=== PATIENT | female | born 1960 | race Caucasian/White ===

== ENCOUNTER → 2017-08-14 | Outpatient (CLI) | payer BC | END | disposition home or self-care (01) | LOC: GMAJ 10:25 | PROVIDERS: ATTEND Family Medicine | DX: Z00.00 Encounter for general adult medical examination without abnormal findings (principal) ==

== ENCOUNTER → 2018-03-07 | Outpatient (CLI) | payer OTHER ==
--- NOTE | 2018-03-08 06:38 | US ---
EXAM DESCRIPTION: Soft Tissue,Abdomen: ULTRASOUND. CLINICAL HISTORY: lump. Mid anterior abdomen wall to the left of midline. COMPARISON: None. TECHNIQUE: Transabdominal scannin-dimensional and Doppler modes. FINDINGS: Heterogeneous isoechoic mass measuring 8.2 x 6.5 x 2.3 cm in the subcutaneous adipose tissue. Smooth margins. Not vascular. No distinct cyst. No large calcifications or parenchymal edema. Overlying skin changes. IMPRESSION: 8.2 cm lipoma in the subcutaneous adipose tissue to the left of midline corresponds to palpable abnormality. No fluid collection or abnormal vascularity. Electronically signed by: Dane Luis MD 03/08/2018 6:37 AM CDT
== END ==
LOC: US 13:16
PROVIDERS: ATTEND Physician Assistant
DX: R10.84 Generalized abdominal pain (principal)

== ENCOUNTER → 2018-07-17 | Outpatient (CLI) | payer BC ==
--- NOTE | 2018-07-17 21:44 | CT ---
EXAM DESCRIPTION: Chest w/Contrast : Computed Tomography. CLINICAL HISTORY: PLEURISY COMPARISON: CT abdomen and pelvis with contrast 04/24/2018. TECHNIQUE: Spiral-axial scans at 5 x 5 mm intervals through the lungs and thorax with IV contrast. 2.5 x 5 mm lung algorithm axial reconstructions. Coronal and sagittal 2.0 Mm reconstructions. No adverse reactions. Total Exam DLP: 803.26 mGy-cm. This exam was performed according to our departmental dose-optimization program which includes automated exposure control, adjustment of the mA and/or kV according to patient size and/or use of iterative reconstruction technique; to reduce radiation dose to as low as reasonably achievable (ALARA). Nodule measurements under 10 mm are given as mean value of 3 axes diameters. FINDINGS: Lungs and airways: Minimal atelectasis in the lateral posterior recess of the right lower lobe. Pleural and parenchymal scarring in the lateral aspect of the posterior recess of the left lower lobe. Atelectasis in the inferior lingula. Overall volume loss in the left lower lobe. Minimal thickening of the bilateral major fissures more on the right than the left. No abnormal nodules masses or infiltrates. Pleural spaces: Thickening of the major fissures as previously noted. No bilateral effusion or pneumothorax. Mediastinum and Soraya: No adenopathy or soft tissue mass. Great vessels and Heart: No significant abnormality of patency with no calcifications. Soft tissues of neck base, axillae, and chest wall: 1.7 x 1.2 cm calcified nodule or mass in the left thyroid lobe. No adjacent soft tissue masses or enlarged lymph nodes. Normal size nodes in the bilateral axilla. Left retromuscular saline implant shows minimal lobulation abutting the pectoral muscle anteriorly. The right saline implant has migrated laterally and rotated 180 degrees and is also inferior to the inferior glandular portion of the breast. No large soft tissue masses. Upper abdomen: Included spleen and adrenal glands unremarkable. Surgical clips in the gallbladder fossa. Fatty pancreas. The upper aspect of the anterior midline ventral hernia sac is seen at the lower margin of the images but the actual hernial neck is not seen, presumed to be inferior to the lower margin of the scan. Suture material is noted along the posterior margin of the upper stomach, which is partially herniated into the posterior mediastinum, And the anterior margin within the abdominal cavity. Osseous structures: Spondylosis and abnormal curvature at several levels of the thoracic spine. Lateral venous flow of contrast around the left shoulder. IMPRESSION: 1. Volume loss and atelectasis in the left lower lobe. No abnormal nodules masses or infiltrates in the lungs bilaterally. No pleural effusion or pneumothorax. With no abnormal nodules visualized, no chest CT follow-up is recommended according to [employer] Best Practice guidelines and Fleischner Society 2017 recommendations for imaging pulmonary nodules. Please see below* 2. Right breast saline implant has migrated inferiorly and laterally along the anterolateral muscular orientation. The left retromuscular saline implant is in customary position with some lobulation of the anterior capsule. 3. Rim calcified mass measuring 1.7 x 1.2 cm in the right lobe of the thyroid gland. Correlate with clinical history. Consider follow-up thyroid ultrasound. This is according to [employer] Best Practice guidelines for imaging follow-up of incidental thyroid nodules (ITN's). Please see below. 4. Upper stomach with partial herniation into the posterior mediastinum and suture material along the margin of the stomach. Stable since the prior abdominal CT scan. Partial visualization of anterior midline herniation sac. Please refer to prior abdominal CT scan. *2017 Fleischner Society Recommendations for Multiple Solid Lung Nodules Follow-Up base on size (average of long- and short-axis diameters). Use most suspicious nodule for followup. Nodule Size <6 mm Low-Risk Patient: No routine follow-up 2017 Fleischner Society Recommendations for Single Solid Lung Nodule Follow-Up based on size (average of long- and short-axis diameters) <6 mm Low-Risk Patient: No routine follow-up . 1.Further evaluation by thyroid US recommended for: -Solitary ITN with high risk imaging features (locally invasive nodule or suspicious lymph nodes) -Solitary ITN of any size in pediatric pts. <= 18 years of age -Solitary ITN >= 1 cm in axial plane in pts. between 18 and 35 years of age -Solitary ITN >= 1.5 cm in axial plane in pts >= 35 years of age Recommendations for f/u of Incidental Thyroid Nodules (ITN) found on CT, MR, NM and Extrathyroidal US are based upon the ACR white paper and Velez 3-tiered system for managing ITNs: J Am Yue Radiol. 2015 Oct;12(2): 143-50 Electronically signed by: Dane Luis MD 07/17/2018 9:43 PM CDT
== END ==
LOC: LAB.O 15:03
PROVIDERS: ATTEND Family Medicine
DX: R09.1 Pleurisy (principal); I10 Essential (primary) hypertension; J98.11 Atelectasis; E04.1 Nontoxic single thyroid nodule; Z98.82 Breast implant status

== ENCOUNTER → 2018-08-25 | Outpatient (CLI) | payer BC ==
--- NOTE | 2018-08-25 10:54 | US ---
US THYROID CLINICAL STATEMENT: E04.1. No palpable mass. No thyroid surgery or therapy. COMPARISON: None FINDINGS: Size right thyroid lobe: 3.5 x 1.5 x 1.3 cm Size left thyroid lobe: 3.0 x 1.2 x 1.1 cm Size isthmus: 0.3 cm Estimated total number of nodules greater than or equal to 1 cm: 1 Nodule 1: Size: 1.6 x 1.3 x 1.2 cm Location: Right Lower Composition: solid or almost completely solid: 2 points Echogenicity: hypoechoic: 2 points Shape: wider than tall: 0 points Margins: ill-defined: 0 points Echogenic foci: peripheral calcifications: 2 points ACR Total Points: 6; ACR TI-RADS risk category: TR4 - moderately suspicious nodule. No distinct solid mass or cyst in the surrounding soft tissues. No large calcifications or abnormal vascularity. No overlying skin changes. No parenchymal edema. IMPRESSION: 1. Nodule 1: ACR TI-RADS 2017 Category TR4. Recommend: Ultrasound-guided fine needle aspiration. Based upon [employer] Best Practice recommendations in ACR TI-RADS 2017 protocol. Please see below.* 2. Soft tissue around the thyroid gland is unremarkable. *ACR TI-RADS 2017 Recommendations: TR1: No FNA or follow up TR2: No FNA or follow up TR3: FNA if >/= 2.5 cm, follow up if 1.5 - 2.4 cm in 1, 3, and 5 years TR4: FNA if >/= 1.5 cm, follow up if 1.0 - 1.4 cm in 1, 2, 3, and 5 years TR5: FNA if >/= 1.0 cm, follow up if 0.5 - 0.9 cm every year for 5 years ACR TI-RADS recommends that no more than two nodules with the highest ACR TI-RADS total point should be biopsied and no more than four nodules should be followed. Electronically signed by: Dane Luis MD 08/25/2018 10:53 AM [facility]
== END ==
LOC: US 08:25
PROVIDERS: ATTEND Family Medicine
DX: E04.1 Nontoxic single thyroid nodule (principal)

== ENCOUNTER → 2018-09-11 | Outpatient (CLI) | payer BC ==
--- NOTE | 2018-09-11 14:56 | US ---
Thyroid Ultrasound Biopsy CLINICAL INFORMATION: Partially calcified solid nodule in the lower pole of the right lobe seen on prior thyroid ultrasound 2017. TECHNIQUE: Procedure was explained to the patient with risks and benefits. The patient gave verbal and written consent. Sterile preparation draping. 1% xylocaine dermal anesthetic 9-1 mixture with sodium bicarbonate. Sterile ultrasound guidance. A total of 6 passes right thyroid nodule; 3 needle samplings with a separate 1.5 inch, 25-gauge needle per sample, and 3 aspiration, with a separate 1.5 inch, 25-gauge needle/10-cc syringe set, per aspiration. Technically difficult study due to patient swallowing and rapid breathing, and calcified wall of the nodule. Each sample was placed on a separate slide and fixed in 95% alcohol container. Saccomanno fluid drawn into aspirate needle and rinse injected into Saccomanno container. Specimens to be sent for pathologic examination at remote facility. . Patient tolerated procedure well. Biopsy #: 1 Nodule reference number based on prior diagnostic ultrasound:1 Maximum size: 1.6 cm Location: right; lower ACR TI-RADS risk category: TR4 (4-6 points) Reason for biopsy: meets ACR TI-RADS criteria Complications: None. IMPRESSION: Successful ultrasound guided fine needle aspiration of right lobe thyroid nodule in the lower pole, with multiple peripheral calcifications. Electronically signed by: Dane Luis MD 09/11/2018 2:54 PM [facility]
== END ==
LOC: US 10:47
PROVIDERS: ATTEND Family Medicine
DX: E04.1 Nontoxic single thyroid nodule (principal)

== ENCOUNTER → 2018-10-08 | Outpatient (CLI) | payer BC | LOC: LAB.O 07:52 | PROVIDERS: ATTEND Internal Medicine Endocrinology, Diabetes & Metabolism | DX: M81.0 Age-related osteoporosis without current pathological fracture (principal); R94.7 Abnormal results of other endocrine function studies; R53.83 Other fatigue; C73 Malignant neoplasm of thyroid gland ==

== ENCOUNTER → 2018-11-12 | Outpatient (CLI) | payer BC | LOC: LAB.O 08:42 | PROVIDERS: ATTEND Internal Medicine Endocrinology, Diabetes & Metabolism | DX: C73 Malignant neoplasm of thyroid gland (principal); N20.0 Calculus of kidney; I10 Essential (primary) hypertension; D75.9 Disease of blood and blood-forming organs, unspecified ==

== ENCOUNTER → 2019-07-17 | Outpatient (CLI) | payer BC ==
--- NOTE | 2019-07-17 10:38 | MAM ---
EXAM DESCRIPTION: 3D Screening BILATERAL : Digital Mammography. CLINICAL HISTORY: 58 years Female ANNUAL SCREENING . No complaints or personal history of breast cancer. Mother with breast cancer at age 80 remote family history of breast cancer. Menarche age 16. Early childbirth. Postmenopausal 25+ years. HRT less than 5 years ago. Bilateral breast augmentation. Lifetime risk of developing breast cancer (Tyrer-Cuzick model)(%): 13%. COMPARISON: None available.. No prior reports available. TECHNIQUE: Bilateral CC and MLO projection full-field images, with Delia Implant Displacement digital tomosynthesis mammographic technique. Bilateral 2-D digital full-field images, MLO and CC projections, non-displaced. Bilateral digital 2-D full-field MLO images. With implant displacement. CAD not available for tomosynthesis or 2-D images. FINDINGS: The breast parenchymal density pattern is: Scattered areas of fibroglandular density. Bilateral nipple retraction more left than right.. Microcalcifications bilaterally. Bilateral saline implants in a submuscular position. Capsules appear intact where seen. Bilateral axillary lymph nodes. No focal, stellate mass or density, focal asymmetry , and no suspicious microcalcifications bilaterally. IMPRESSION: Benign exam. BIRAD CATEGORY: 2 BENIGN FINDINGS. RECOMMENDATIONS: FOLLOW UP: Routine digital bilateral mammographic screening, one year interval from June 2019. Written communication explaining the IMPRESSION and follow-up, will be mailed to the patient and referring health care provider. According to the [employer], yearly mammograms are recommended starting at age 40 and continuing as long as a woman is in good health. Any breast change noted on a breast self-exam should be reported promptly to the patient's healthcare provider. Breast MRI is recommended for women with an approximately 20-25% or greater lifetime risk of breast cancer, including women with a strong family history of breast or ovarian cancer and women who have been treated for Hodgkin's disease. A negative mammographic report should not delay tissue diagnosis in patients with significant clinical history or physical findings. Extremely dense breast tissue limits the sensitivity of digital mammography. Electronically signed by: Dane Luis MD 07/17/2019 10:36 AM CDT
== END ==
LOC: MAMMO 09:30
PROVIDERS: ATTEND Family Medicine
DX: Z12.31 Encounter for screening mammogram for malignant neoplasm of breast (principal)

== ENCOUNTER → 2020-07-29 | Outpatient (CLI) | payer BC ==
--- NOTE | 2020-07-30 12:00 | CT ---
EXAM DESCRIPTION: Chest w/Contrast CLINICAL HISTORY: 59 years, Female, ABNL FINDING OF LUNG FIELD COMPARISON: Previous CT chest July 17, 2018, report from x-ray chest July 18, 2018 TECHNIQUE: Thin-section noncontrast axial CT images are obtained according to our protocol. Reconstructed MPR images are created and reviewed as well. FINDINGS: Lungs: Discoid atelectasis is seen in the right middle lobe, in the lingula and in the left lower lobe. No focal consolidation or groundglass infiltrate to suggest acute pneumonia. Changes in the lingula and left lower lobe were present previously. Discoid atelectasis in the right upper lobe appears to be a new development.. Enlarged tortuous right pulmonary veins were present on the previous study. 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 Clinical correlation recommended. This same configuration as seen on the previous chest CT. No worrisome pulmonary mass or nodule. Mediastinum: Single enlarged precarinal lymph node measures 1.2 cm short axis dimension. Mildly prominent nodes in the retroesophageal region appears similar to previous study. Small hiatal hernia is present. Surgical staple line in the region of the stomach with evidence of partial gastric resection/gastric bypass. Large pulmonary arteries consistent with pulmonary hypertension. Heart size is large with no pericardial effusion. Mild coronary arterial calcification. Chest wall/axilla: No mass or adenopathy. Subpectoral implants are present bilaterally, deformed and displaced on the right as on previous study. Lower neck/supraclavicular: No mass or adenopathy. Thyroid is surgically absent. Upper abdomen: Large ventral hernia is seen in the midline between diastatic rectus abdominis muscles. This contains omental fat, small amount of fluid and a Bowser's type hernia of the mid transverse colon. This appears larger than on previous study. Clips are seen in the gallbladder fossa. Coronal and sagittal reformatted images confirm the findings. 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 Benign Schmorl's nodes in the T-spine with intact sternum on sagittal and coronal images. 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 Mildly enlarged lymph node in the precarinal region likely reactive. Enlarged pulmonary arteries consistent with pulmonary hypertension. Bilateral breast implants with displacement and deformity on the right. Postoperative changes of partial gastrectomy. Large ventral hernia containing omental fat and a portion of the transverse colon. This exam was performed according to our departmental dose-optimization program, which includes automated exposure control, adjustment of the mA and/or kV according to patient size and/or use of iterative reconstruction technique. Total DLP equals 935.23 mGycm. Electronically signed by: Tony Connell MD 07/30/2020 11:58 AM [facility]
--- NOTE | 2020-07-30 12:07 | CT ---
EXAM DESCRIPTION: Soft Tissue Neck w/Contrast CLINICAL HISTORY: 59 years, Female, THYROID CA COMPARISON: Previous thyroid sonogram August 25, 2018 TECHNIQUE: CT of the neck is performed during IV administration of 100 mL of Optiray 320. MPR images are created and reviewed as well. [address] scanning through the neck was performed in patient with history of thyroid cancer and previous thyroidectomy. FINDINGS: Base of the skull and lower brain are unremarkable. Lower paranasal sinuses appear clear. Normal submandibular salivary glands with normal appearance of the parotid glands, relatively symmetrical. Normal appearance of the base of the tongue, epiglottis and aryepiglottic folds. Normal appearance of the glottis and subglottic trachea. In the region of the thyroid gland, multiple small surgical clips are seen. No mass is identified to suggest recurrent tumor. No cervical adenopathy to suggest shane metastatic disease. Parapharyngeal spaces appear normal. Normal adenoidal soft tissue thickness. Coronal and sagittal reformatted images confirm the findings. Normal enhancement of cervical vessels. Mild calcified plaque at the left carotid bifurcation. Sagittal reformatted images show degenerative disc disease at C5-6 level with high-grade neural foraminal narrowing bilaterally. Degenerative changes at the atlantodens interval. Prominent left-sided facet hypertrophic spurring at C4-5. IMPRESSION: Surgically absent thyroid gland. No CT evidence of recurrent or metastatic disease in the neck. This exam was performed according to our departmental dose-optimization program, which includes automated exposure control, adjustment of the mA and/or kV according to patient size and/or use of iterative reconstruction technique. Electronically signed by: Tony Connell MD 07/30/2020 12:05 PM [facility]
== END ==
LOC: CT 09:19
PROVIDERS: ATTEND Internal Medicine
DX: C73 Malignant neoplasm of thyroid gland (principal); E03.9 Hypothyroidism, unspecified; R25.2 Cramp and spasm; E55.9 Vitamin D deficiency, unspecified; R91.8 Other nonspecific abnormal finding of lung field; Z90.89 Acquired absence of other organs